=== PATIENT | male | born 1955 | race Caucasian/White ===

== ENCOUNTER 2016-08-07 14:59 | Emergency (ER) | payer MEDICARE ==
[2016-08-07] MEDS ORDERED: KETOROLAC TROMETHAMINE 30 MG/ML VIAL IM ONE (15:28)
[2016-08-07] MEDS ORDERED: KETOROLAC TROMETHAMINE 30 MG/ML VIAL ONE (15:33)
--- NOTE | 2016-08-07 15:36 | ERNOTE ---
ENT HPI Date of Service: 08/07/16 Time Seen by Provider: 08/07/16 15:24 Source: patient Exam Limitations: no limitations - Immun/Allergies/Home Medications Immunizations: IMMUNIZATION HX Immunizations Up to Date No: unknown tetanus History of Influenza Vaccine No Hx Pneumococcal Vaccination No Allergies/Adverse Reactions: Allergies Allergy/AdvReac Type Severity Reaction Status Date / Time No Known Allergies Allergy Verified 11/29/13 21:20 Home Medications: HOME MEDICATIONS Enalapril Maleate [Vasotec] 20 mg PO DAILY 11/28/13 [Last Taken Unknown] Aspirin [Aspirin Enteric Coated] 81 mg PO DAILY 08/07/16 [Last Taken Unknown] Loratadine [Allergy] 10 mg PO DAILY 08/07/16 [Last Taken Unknown] Lovastatin [Altoprev] 20 mg PO DAILY 08/07/16 [Last Taken Unknown] Sulfamethoxazole/Trimethoprim [Bactrim Ds] 1 tab PO BID #28 tab 08/07/16 [Last Taken Unknown] - History of Present Illness Narrative: Pt. comes in with c/o R face and ear pain after he noticed a sore just above his ear last week and it continued to worsen and the [id number] and redness is now into his hairline, down to his neck, and into face. Pt. denies any SOB, CP , NVD, fever, recent illness, injury, alleviating factors, aggravating factors, or prehospital treatment. Review of Systems - Review of Systems Constitutional: Present: no symptoms reported. Absent: recent illness, fever, chills, weakness, fatigue, malaise EYE: Present: no symptoms reported ENT: Present: ear pain, other - facial pain. Absent: ear discharge Respiratory: Present: no symptoms reported. Absent: shortness of breath, cough , wheezing Cardiology: Present: no symptoms reported. Absent: chest pain, palpitations, edema Gastrointestinal/Abdominal: Present: no symptoms reported. Absent: nausea, vomiting, diarrhea Genitourinary: Present: no symptoms reported Musculoskeletal: Present: no symptoms reported. Absent: back pain, joint pain Skin: Present: other - swelling and painful R face and ear Neurological: Present: no symptoms reported. Absent: headache, dizziness/light- headedness, numbness, tingling All Other Systems: All systems neg except as marked - Patient's Past Medical History Patient History - Medical: No pertinent hx Patient History - Cardiac/Respiratory: Hypertension, Hyperlipidemia Patient History - Cancer: No Hx of Cancer Patient History - Surgical Procedures: Other - Leg, Hernia Patient History - Other: None - Family History Mother Family History - Medical: Arthritis Family History - Cardiac/Respiratory: Coronary Heart Disease, Hypertension Family History - Cancer: No pertinent family hx Father Family History - Medical: No pertinent hx Family History - Cardiac/Respiratory: No pertinent hx Family History - Cancer: Lung Brother Family History - Medical: No pertinent hx Family History - Cardiac/Respiratory: Hypertension Family History - Cancer: No pertinent family hx Sister Family History - Medical: No pertinent hx Family History - Cardiac/Respiratory: No pertinent hx Family History - Cancer: No pertinent family hx - Social History Living Situations: spouse Abuse History: No History of abuse Psych History: No pertinent hx Smoking Status: Never smoker Have you smoked in the past 12 months: No Do you dip or chew tobacco: No Alcohol Use: none Drug Use: none - Immunizations Immunizations Up to Date: No - unknown tetanus Hx Pneumococcal Vaccination: No History of Influenza Vaccine: No Physical Exam - Physical Exam General Appearance: Present: wd/wn, alert, no apparent distress Eye Exam: Normal inspection: bilateral, PERRL: bilateral, EOMI: bilateral Ears, Nose, Throat: Present: other - ear tragus with macular pustule scabbed over and swelling and erythema Respiratory: Present: no respiratory distress, normal breath sounds, no accessory muscle use, chest nontender, lungs clear Cardiovascular/Chest: Present: regular rate, rhythm, no murmur, normal peripheral pulses Neurological Exam: Present: alert, oriented, normal mood/affect, no motor/ sensory deficits Skin Exam: Present: warm/dry, other - erythema nd edema R face to post occiput to R hindu to R neck ED Progress - Date and Time Seen: Date and Time: 08/07/16 15:34 Pt. with significantly clinical appearance of cellulitis but without systemic complications will start with parenteral abx and have pt. transition to oral abx tomorrow am. - Results and Orders Patient's Lab Results:: I have reviewed the patient's lab results. - Vital Signs Patient's Vital Signs:: I have reviewed the patient's vital signs. Vital Signs: Vital Signs 08/07/16 15:02 Temperature 36.9 C Pulse Rate 90 Respiratory 18 Rate Blood Pressure 123/81 O2 Sat by Pulse 97 Oximetry - Progress/Reassessment Chief Complaint: Earache Departure Clinical Impression: Cellulitis and abscess of face - Departure Disposition: Home self-care Condition: Good Instructions: Cellulitis, Adult, [id number] Additional Instructions: Pleae follow up with primary provider in 2-3 days. Prescriptions: Sulfamethoxazole/Trimethoprim [Bactrim Ds] 1 tab PO BID #28 tab
[2016-08-07 15:50] LABS: Hematocrit 46.1 % (42.0-52.0); Hemoglobin 15.8 gm/dL (13.5-18.0); Mean Cell Volume 81.4 fl (78-100); Mean Corpuscular Hemoglobin 27.9 pg (27-31); Mean Corpuscular Hgb Conc 34.3 g/dl (32-36); Mean Platelet Volume 9.9 fl (6.0-9.5); Neutrophil # 5.5 K/mm3 (1.3-6.0); Neutrophil % 66.3 % (42-75.0); Platelet Count 284 K/mm3 (150-450); Red Blood Count 5.66 M/mm3 (4.7-6.0); Red Cell Distribution Width 12.1 % (11.5-14.0); White Blood Count 8.2 K/mm3 (4.0-10.5)
[2016-08-07 16:16] VITALS: BP 142/82
== END 2016-08-07 16:17 | disposition home or self-care (01) ==
LOC: ER 14:59
DX: L03.211 Cellulitis of face (principal); L02.01 Cutaneous abscess of face